=== PATIENT | male | born 1955 | race Caucasian/White ===

== ENCOUNTER → 2016-10-02 | Outpatient (CLI) | payer BC ==
[~2016-10-02] MED LIST: ASPIR 8181 MG PO; COLACE100 MG PO; DILAUDID 2MG(HYD2 MG PO; DILAUDID 4MG4 MG PO; LIPITOR40 MG PO; MIRALAX17 GM PO; OMEPRAZOLE40 MG PO; TOPROL XL25 MG PO; TYLENOL EXTRA500 MG PO; VALIUM5 MG PO; VITAMIN B-12500 MCG PO; XARELTO10 MG PO
== END | disposition disaster alternative care site (69) ==
LOC: LNEW 16:00
DX: M16.11 Unilateral primary osteoarthritis, right hip (principal)

== ENCOUNTER 2016-12-25 14:00 | Inpatient (IN) | payer BC ==
[~2016-12-25] VITALS: Ht 185.4 cm; Wt 128.0 kg
--- NOTE | ~2016-12-25 | OR ---
PATIENT'S NAME: ENDY FELIX [facility] AGE: 61 Y [address] ROOM: [place] [address] LOCATION: [facility] ADMIT DATE: 12/26/2016 OR/Procedure Report DISCHARGE DATE: FAMILY PHYSICIAN: LORE CARTWRIGHT MD ATTENDING PHYSICIAN: ARUNA REESE SURGEON: Aruna Reese MD PARK MAINTAINER: 1. MOMO Preciado. 2. Jose Cruz Mares CST/HERMINIA. DATE OF PROCEDURE: 12/26/2016 PREOPERATIVE DIAGNOSIS: Osteoarthritis, right hip. POSTOPERATIVE DIAGNOSIS: Osteoarthritis, right hip. OPERATION: Right total hip arthroplasty. ANESTHESIA: Spinal anesthesia plus subcutaneous and periarticular local anesthesia (ropivacaine with epinephrine and Toradol). ESTIMATED BLOOD LOSS: Approximately 250 mL. DRAIN: None. SPECIMENS: None. COMPLICATIONS: None. IMPLANTS: 1. Colbert Trident titanium size 58 mm hemispherical uncemented acetabular shell with one dome hole cover and no screws. 2. Shira X3 neutral acetabular polyethylene liner with 36 mm inner diameter. 3. DePuy Power size 8 standard-offset uncemented femoral component. 4. A 36 mm diameter Biolox femoral head with +1 mm neck length. INDICATION FOR SURGERY: Endy Felix is a 61-year-old male who presents with advanced right hip osteoarthritis and associated severely compromised activities of daily living. The patient has decided to proceed with hip replacement after having been thoroughly counseled regarding the associated risks, benefits, and limitations. We have specifically reviewed the risks and implications of infection, deep venous thrombosis, pulmonary embolism, mortality, neurovascular complications, blood transfusion (and associated potential for disease transmission or transfusion reaction), stiffness, instability, leg length discrepancy, mechanical deterioration of the components (due to wear and to loosening), and the potential need for PATIENT'S NAME: ENDY FELIX [facility] AGE: 61 Y [address] ROOM: [place] [address] LOCATION: [facility] ADMIT DATE: 12/26/2016 OR/Procedure Report DISCHARGE DATE: FAMILY PHYSICIAN: LORE CARTWRIGHT MD ATTENDING PHYSICIAN: ARUNA REESE revision. DESCRIPTION OF PROCEDURE: The patient was positioned in a lateral decubitus position with the right side up after administration of anesthesia and prophylactic antibiotics. An axillary roll was placed and the non-operative leg was well padded. The pelvis was locked perpendicularly to the floor on a pegboard. The right hip and entire operative extremity were prepped and draped with vigilant sterile technique. The patient's name as well as the intended operative side and procedure were confirmed with a verbal time-out involving myself, the circulating nurse, the scrub nurse, and the anesthesiologist. The right hip was approached through a standard posterolateral incision. The fascia mare and the gluteus jil fascia were sharply divided in line with the overlying skin incision. The sciatic nerve was identified and was vigilantly protected throughout the entire case. The short external rotators and posterior capsule were divided from their respective femoral insertions and tagged with four #1 Ethibond sutures for later repair. The hip was posteriorly dislocated with combined flexion, adduction, and internal rotation. The femoral neck osteotomy was performed with an oscillating saw. Inspection of the femoral head demonstrated full-thickness loss of articular cartilage at the superolateral margin of the articular surface. There was grade 3 degeneration throughout much of the remainder of the femoral head. There was a 1 cm diameter region of full-thickness articular cartilage loss at the anterior margin of the femoral head. There was a moderate-sized osteophyte at the periphery of the femoral head. Circumferential acetabular exposure was obtained. Inspection of the acetabulum demonstrated a moderate effusion consisting of benign-appearing translucent synovial fluid. There were large osteophytes anteriorly and inferiorly. There were no loose bodies. Remnants of the acetabular labrum were sharply thoroughly excised. The acetabulum was sequentially progressively reamed up to 57 mm with hemispherical power reamers. The final acetabular shell was impacted into position in 20 degrees of anteversion and 45 degrees of inclination. An excellent press-fit was obtained. No supplemental dome screw fixation was necessary. A neutral trial liner was inserted. Attention was next focused upon femoral preparation. The femoral canal initiator was utilized. The femoral canal was reamed by hand to size 6, and on power, to size 8 with tapered conical reamers. The size 8 reamer tightly engaged the endosteal cortex of the proximal femur. The femoral canal was subsequently sequentially progressively broached up to a size 8. The size 8 PATIENT'S NAME: ENDY FELIX [facility] AGE: 61 Y [address] ROOM: [address] [place] [id number] LOCATION: [facility] ADMIT DATE: 12/26/2016 OR/Procedure Report DISCHARGE DATE: FAMILY PHYSICIAN: LORE CARTWRIGHT MD ATTENDING PHYSICIAN: ARUNA REESE obtained excellent axial and rotational stability. Trial reductions with the above specified construct yielded acceptable stability and acceptable reproduction of leg length and offset. All trial components were removed. The final acetabular liner was inserted with excellent circumferential visualization of its locking mechanism to assure adequate deployment. The final femoral component was impacted into position. The femoral component achieved excellent axial and rotational stability. The trunnion of the femoral component was vigilantly protected prior to placement of the femoral head. The trunnion of the femoral component was thoroughly cleaned and dried prior to placement of the femoral head. The incision was thoroughly irrigated with bacteriostatic pulsatile saline lavage multiple times throughout the case. The entire joint space was thoroughly inspected and thoroughly irrigated to assure that there was no residual debris of any sort. A final reduction was then performed. After final reduction, the hip could be firmly externally rotated in full extension and zero degrees of abduction without anterior subluxation. In neutral rotation and zero degrees of abduction, the hip could be firmly flexed to 120 degrees without instability. At 90 degrees of flexion and zero degrees abduction, the hip could be internally rotated to 70 degrees before there was any hint of posterior subluxation. The posterior capsule and short external rotators were repaired through two drill holes in the posterior aspect of the greater trochanter. The fascia mare and gluteus jil fascia were closed with multiple simple and [id number] interrupted # 1 Ethibond and #1 Vicryl sutures. Subcutaneous tissues were thoroughly re-irrigated with bacteriostatic pulsatile saline lavage. Subcutaneous tissues were re-approximated with simple buried interrupted #0 Vicryl sutures. The skin was closed with superficial buried interrupted 2-0 Vicryl sutures followed by a running subcuticular 3-0 Monocryl suture, followed by Octylseal, followed by Steri- Strips with benzoin, followed by an occlusive Mepilex dressing. There were no intra-operative complications. It should be noted that the physician's nutrition services assistant played an active, integral role throughout this entire operation. By providing expert retraction, they greatly facilitated and expedited safe and effective exposure of the proximal femur and acetabulum for preparation and implantation of the components. They were also actively involved in the patient's positioning, prepping and draping, as well as wound closure. PATIENT'S NAME: ENDY FELIX [facility] AGE: 61 Y [address] ROOM: [address] [address] LOCATION: [facility] ADMIT DATE: 12/26/2016 OR/Procedure Report DISCHARGE DATE: FAMILY PHYSICIAN: LORE CARTWRIGHT MD ATTENDING PHYSICIAN: ARUNA REESE MD MADAI SANTOYOW/modl /[id number] d: 12/26/16 1244 t: 01/12/17 2140, OPERATIVE SUMMARY
[2016-12-25] MEDS ORDERED: OMEPRAZOLE40 MG PO (14:14)
[2016-12-25] MEDS ORDERED: TOPROL XL25 MG PO (14:57)
[2016-12-26] MEDS ORDERED: LIPITOR40 MG PO (09:05)
[2016-12-26] MEDS ORDERED: VITAMIN B-12500 MCG PO (09:06)
[2016-12-26 09:11] LABS: BASOPHIL # 0.1 K/uL (0.0-0.2); EOSINOPHIL # 0.2 K/uL (0.0-0.5); EOSINOPHIL % 3.3 %; HEMATOCRIT 44.3 % (37.0-53.0); HEMOGLOBIN 15.2 g/dL (11.0-16.0); IMMATURE GRANULOCYTE % 0.4 %; LYMPHOCYTE # 1.7 K/uL (0.8-4.0); LYMPHOCYTE % 24.4 %; MCH 34.5 pg (27.0-34.0); MCHC 34.3 gm/dL (32.0-36.5); MCV 100.7 fl (83.0-98.0); MONOCYTE # 0.6 K/uL (0.0-1.0); MONOCYTE % 8.9 %; MPV 10.4 fl (9.4-12.4); NEUTROPHIL # (ANC) 4.3 K/uL (1.4-9.0); NRBC % 0 /100WBC (0-0.00); PLATELET COUNT 198 K/uL (150-450); RDW-CV 13.1 % (11.9-14.6); WBC 6.9 K/uL (4.0-11.0)
--- NOTE | 2016-12-26 15:32 | NUR ---
Introduced self/role to patient and . Provided with copy of the Hip Tips booklet. Reviewed hip dislocation precautions. reports they have a wheeled walker in car. Does not anticipate any discharge needs at this time. Reviwed use of IS and encouraged at least 10 deep breaths each hour. Has foot pumps in place bilaterally. Will follow and assist as needed.
[2016-12-26] MEDS ORDERED: TYLENOL EXTRA500 MG PO (17:10)
[2016-12-26] MEDS ORDERED: COLACE100 MG PO (17:12)
[2016-12-26] MEDS ORDERED: MIRALAX17 GM PO (17:14)
--- NOTE | 2016-12-26 17:15 | NUR ---
Significant Event: Received from pacu @ 1320. Mepilex dressing c/d/i. CSM WNL. Spinal, full sensation. Lui hose/foot pumps on. Icebag to incision. Pillows between knees. Will have 3rd hourly vs due @ 1900. Has not voided postop. Is planning on discharge tonight, awaiting Dr Stanford for orders. PT/OT have completed all their teaching. Follow up:
[2016-12-26] MEDS ORDERED: DILAUDID 2MG(HYD2 MG PO (17:16)
[2016-12-26] MEDS ORDERED: XARELTO10 MG PO (17:16)
[2016-12-26] MEDS ORDERED: ASPIR 8181 MG PO (17:17)
[2016-12-26] MEDS ORDERED: VALIUM5 MG PO (17:18)
--- NOTE | 2016-12-27 04:39 | NUR ---
Significant Event: Pain issues at the beginning of the shift. MD increased pain medication. Dressing is clean dry and intact. CSM WNL. 1 assist with transfers. Family at bedside. Has orders for alcohol if patient asks-check the chart for orders. Valium at 0348. Dilaudid IV at 0349. On 2 L of oxygen nasal cannula. Dilaudid at 0112. Toradol at 0229. Voids without difficulty. Follow up:
[2016-12-27] MEDS ORDERED: DILAUDID 4MG4 MG PO (12:36)
--- NOTE | 2016-12-27 14:02 | NUR ---
Pt. AOx3. VSS. CSM WNL. Dressing was C/D/I. Dilaudid given at 1100. Discharge instructions explained. Pt. had no questions or concerns about discharge instructions. Patient was wheeled to front lobby for dismissal.
== END 2016-12-27 13:00 | disposition disaster alternative care site (69) | DRG 470 ==
LOC: GPOC 14:00 → G3N 12-26 08:52 → GSDC 12-27 06:00 → G3N 12-27 13:00 → EDSTATUS 12-27 14:00 → GPOC 12-27 14:00 → GSDC 12-27 14:00
PROVIDERS: ADMIT Orthopaedic Surgery
PROC: 0SR902A Replacement of Right Hip Joint with Metal on Polyethylene Synthetic Substitute, Uncemented, Open Approach (ICD-10-PCS; principal; 2016-12-26)
DX: M16.11 Unilateral primary osteoarthritis, right hip (principal); E66.9 Obesity, unspecified; I25.10 Atherosclerotic heart disease of native coronary artery without angina pectoris; F10.20 Alcohol dependence, uncomplicated; Z68.37 Body mass index [BMI] 37.0-37.9, adult
CPT/HCPCS: C1776; J0690; J1170; J1885; J2001; J2250; J2405; J2795; J7030; J7050